=== PATIENT | male | born 1950 | race African-American/Black ===

== ENCOUNTER 2023-08-27 19:06 | Emergency (ER) | payer MEDICARE ==
[2023-08-27 20:27] LABS: Bilirubin Negative (Negative); Blood, Urine Negative (Negative); Clarity Clear (Clear); Glucose, Urine (Dipstick) Negative (Negative); Ketone, Urine Negative (Negative); Leukocyte Negative (Negative); Nitrite Negative (Negative); Protein, Urine (Dipstick) Negative (Neg-Trace); pH, Urine 7.5 (5.0-9.0)
[2023-08-27 20:28] LABS: CAUTI Indications for Culture Pelvic or flank pain; RBC/HPF 0-3 HPF (0-3); Squamous Epithelial 0-3 HPF (0-3)
[2023-08-27 20:29] LABS: Urine Culture Reflex No No
[2023-08-27 20:41] LABS: Anion Gap 14 mmol/L (10-20); BUN (Urea Nitrogen) 10 mg/dL (8.4-25.7); Calc. Creatinine Clearance 0 mL/min (70-130); Calcium 9.3 mg/dL (7.8-10.44); Carbon Dioxide 25 mmol/L (23-31); Chloride 105 mmol/L (98-107); Estimated GFR 80; Glucose 121 mg/dL (83-110); Potassium 4.3 mmol/L (3.5-5.1); Sodium 140 mmol/L (136-145)
== END 2023-08-27 21:04 | disposition home or self-care (01) ==
LOC: MADERS 19:06
DX: N32.81 Overactive bladder (principal)
CPT/HCPCS: 74176; 80048; 81001